=== PATIENT | female | born 1995 | race Caucasian/White ===

== ENCOUNTER → 2019-04-12 07:28 | Outpatient (CLI) | payer BC, OTHER, SELFPAY ==
--- NOTE | 2019-04-12 08:00 | US_ITS ---
US abdomen complete HISTORY: Right upper quadrant pain with nausea and vomiting ITS.REASON: DIARRHEA ORDERING PHYSICIAN: Sussy Skelton APRN PATIENT AGE: 24 years COMPARISON: None FINDINGS: PANCREAS:Unremarkable. No obvious mass or abnormal fluid collection. No ductal dilatation LIVER:No focal liver lesions demonstrated. Homogeneous echogenicity. No intrahepatic biliary ductal dilatation evident. There is appropriate direction of blood flow within a nondilated portal vein RIGHT KIDNEY:Mild renal cortical thinning without obvious scarring. LEFT KIDNEY:Mild renal cortical thinning without obvious scarring. Please correlate with patient's renal function GALLBLADDER:No gallstones, gallbladder wall thickening, pericholecystic fluid, or biliary dilatation. AORTA:No evidence of aneurysmal dilatation. SPLEEN:Unremarkable. Normal size and echogenicity ASCITES:None demonstrated. IMPRESSION: 1. Mild bilateral renal cortical thinning with normal echogenicity without obvious renal scarring. Please correlate with patient's renal function. 2. Otherwise negative abdominal ultrasound
== END ==
PROVIDERS: PCP Obstetrics & Gynecology; Visit Provider Nurse Practitioner Family
DX: R19.7 Diarrhea, unspecified (principal)
CPT/HCPCS: 76700

== ENCOUNTER → 2019-04-26 10:14 | Outpatient (CLI) | payer BC, OTHER, SELFPAY ==
--- NOTE | 2019-04-26 10:16 | NM_ITS ---
PROCEDURE: NM HEPATOBILIARY W PHARM CLINICAL INDICATION: UPPER ABD PAIN Right upper quadrant pain with nausea vomiting and diarrhea COMPARISON: ABDCM US abdomen complete from 04/12/2019 FINDINGS: Dose: 8.04 mCi technetium Choletec 1.4 mcg of CCK. No pain during CCK infusion Gallbladder is visualized by 10 minutes. There is homogeneous echogenicity within the hepatic parenchyma. Small bowel is visualized by 20 minutes. Ejection fraction is calculated to be 96 percent which is normal. IMPRESSION: Unremarkable hepatobiliary scan with normal gallbladder ejection fraction Dictated by: Aneesh Godwin MD 04/26/2019 14:07 Signed by: <Electronically signed by Aneesh Godwin MD in OV> 04/26/2019 14:07
--- NOTE | 2019-04-26 10:29 | HMH.ITSHM ---
Current Home Medications as stated by this patient Charlene Esparza or physician relations representative. []LISINOPRIL
== END ==
PROVIDERS: PCP Obstetrics & Gynecology; Visit Provider Nurse Practitioner Family
DX: R10.10 Upper abdominal pain, unspecified (principal)
CPT/HCPCS: 78227; A9537; J2805

== ENCOUNTER → 2020-04-04 11:47 | Outpatient (CLI) | payer BC, OTHER, SELFPAY ==
[2020-04-04 13:22] LABS: HCG Qualitative, Serum Negative (Negative)
[2020-04-04 15:10] LABS: Coronavirus 19 IgG Antibody Negative (Negative); Coronavirus 19 IgM Antibody Negative (Negative)
== END ==
PROVIDERS: Visit Provider Internal Medicine Gastroenterology
DX: Z01.818 Encounter for other preprocedural examination (principal); R63.4 Abnormal weight loss
CPT/HCPCS: 36415; 84703; 86328

== ENCOUNTER 2020-04-05 10:01 | Day surgery (SDC) | payer BC, MEDICAID, SELFPAY ==
[2020-03-28 13:10] VITALS: BMI 27.5
[2020-04-05] VITALS (7 sets, daily range): BP systolic 80–109; BP diastolic 40–69; PULSE 70–86; RESP 16; TEMP 36.6–36.7; O2SAT 97–100
--- NOTE | 2020-04-05 12:00 | P.PN_ITS ---
[facility] Anesthesia Checklist - Patient Identification Patient Identification: Arm Band - Structural Data Admitted From: Home Planned Operative Procedure/s: egd/colonoscopy Consent for Planned Operative Procedure(s) Verified: Yes Verified Documents: Surgical Consent, History and Physical - NPO Status Verified Time NPO: 00:00 - Additional verifications Anesthesia Reactions: No - Airway Assessment C-Spine Mobility Assessed: Yes (mp2) TMJ Mobility Assessed: Yes Dentition: Poor Dentition - Neurological Assessment Level of Consciousness: Awake, Alert - Anesthesia Plan Anesthesia Risk discussed: Yes Anesthesia Plan: Verified ASA Class: II Anesthesia Type: MAC [facility] History I have reviewed the patient's past medical history: Yes Medical History: Reports:: Hypertension Denies:: Cancer, Diabetes Mellitus Type 1, Diabetes Mellitus Type 2, Internal Pacemaker, MRSA, Seizures *Have you ever received a pneumonia vaccine?: No *Have you received a flu vaccine this season?: Yes Anesthesia experience/problems:: nac Other Surgeries: Yes: Other. No: Pacemaker Amputation: No Fractures: No - *Social History Last grade of school completed: High school graduate Smoking Status: Unknown if ever smoked Tobacco Type: cigarettes # Packs/Day (cigarettes): 1 Alcohol Intake: never Substance Use Type: denies use *Occupational Status:: employed Housing: house Household Members: family *Travel in the last 8 weeks: None Family Hx:: Hypertension, Diabetes, Cancer
--- NOTE | 2020-04-05 12:06 | HMH.PROC ---
[facility] Procedure Note Procedure Note:: Upper Endoscopy Procedure Report: Esophagogastroduodenoscopy with cold biopsies Endoscopost: Florian Sethi II, MD Referring Physician: BREANNE Reddy Date of Procedure: April 05, 2020 Equipment: Olympus GIF 180 standard upper endoscope Sedation: MAC sedation Indications: Ms. Esparza is a 25-year-old female with dyspepsia, epigastric abdominal pain and some lower abdominal pain and discomfort. She has bloating and early satiety. She has lost 36 pounds in 2 weeks. She reports postprandial symptoms. She does have irregular bowel function with diarrhea that alternates with constipation. She reports no gassiness or belching. She has no nausea. She reports no heartburn, reflux, chest pain or dysphagia. She reports no stress. She reports that her maternal grandfather had colon cancer but she reports no family history of colitis or Crohn's disease. This is her first upper endoscopy. Procedure: Prior to the procedure, a history and physical exam was performed, and patient's medications and allergies were reviewed. The risks, benefits and alternatives of the sedation and procedure were discussed with the patient. All questions were answered and informed consent was obtained. The patient was brought to the procedure room. Patient identification and proposed procedure were verified by the physician and the nurse. The patient was placed in a left lateral decubitus position and the scope was passed under direct vision. Throughout the procedure, the patient's blood pressure, pulse, and oxygen saturations were monitored continuously. The upper GI endoscopy was accomplished without difficulty. The patient tolerated the procedure well. Findings: The scope was passed directly into the upper esophagus and advanced to the third portion of the duodenum. The post bulbar duodenum and duodenal bulb were normal with normal mucosa and conniventes. Cold biopsies were taken from the post bulbar duodenum to rule out celiac disease. The scope was withdrawn through a normal duodenal bulb and pylorus into the stomach. There was mild linear reactive gastropathy of the antrum. The remainder of the antrum, body and fundus of the stomach were grossly normal. Upon retroflexion there was a small 1 to 2 cm hiatal hernia. 2 biopsies were taken in the antrum and along the lesser curvature for histology to rule out gastritis and/or H pylori. The scope was then withdrawn into the esophagus. There was no evidence of reflux esophagitis or Harman's. There were tertiary contractions and mild esophageal dysmotility. The remainder of the esophageal mucosa was normal. Impression: 1. Nonerosive GERD with mild esophageal dysmotility and very small 1 to 2 cm hiatal hernia 2. Mild linear reactive gastropathy Plan: I will follow-up the biopsies. I do feel that the patient has functional dyspepsia and functional bowel disease. We will discuss dietary measures and treatment to include therapy for visceral sensitivity/abdominal pain. I will proceed with colonoscopy.
--- NOTE | 2020-04-05 12:23 | HMH.PROC ---
[facility] Procedure Note Procedure Note:: Colonoscopy Procedure Report: Colonoscopy with cold biopsies Endoscopist: Florian Sethi II, MD Referring physician: BREANNE Reddy Date of Procedure: April 05, 2020 Equipment: Olympus 180 variable stiffness pediatric colonoscope Sedation: MAC sedation Indication: Ms. Esparza is a 25-year-old female with dyspepsia and abdominal pain. She does report some lower abdominal pain and discomfort. She has irregular bowel function with both diarrhea that alternates with constipation. The diarrhea is predominant. The patient does report a 36 pound weight loss in 2 weeks. The patient reports no rectal bleeding. She reports no family history of colitis or Crohn's disease but her maternal grandfather had colon cancer. This is her first colonoscopy. Procedure: Prior to the procedure, a history and physical exam was performed, and patient's medications and allergies were reviewed. The risks, benefits and alternatives of the sedation and procedure were discussed with the patient. All questions were answered and informed consent was obtained. The patient was brought to the procedure room. Patient identification and proposed procedure were verified by the physician and the nurse. The patient was placed in a left lateral decubitus position and the scope was passed under direct vision. Throughout the procedure, the patient's blood pressure, pulse, and oxygen saturations were monitored continuously. The colonoscopy was accomplished without difficulty. The patient tolerated the procedure well. Findings: On digital rectal examination there was normal rectal tone. There were no external hemorrhoids. The colonoscope was introduced through the anal canal to the rectum and advanced to the cecum. The ileocecal valve and appendiceal orifice were identified. The scope was advanced a short distance into the ileum which appeared grossly normal. Cold biopsies were taken from the ileum to rule out microscopic ileitis. The scope was then withdrawn into the colon. The cecum, ascending, transverse, descending, sigmoid and rectum were grossly normal. Cold biopsies were taken from the right colon to rule out microscopic colitis. There were no mucosal abnormalities identified. Upon retroflexion within the rectum there were grade 1 internal hemorrhoids.The preparation was excellent throughout with [place] Preparation Score of 9. The cecal time was 10 minutes. Impression: 1. Normal colonoscopy with intubation of the terminal ileum 2. Grade 1 internal hemorrhoids Plan: There was no evidence of colitis or Crohn's disease. I do feel that the patient has irritable bowel syndrome. We will discuss dietary measures and treatment options. I will follow-up the biopsies.
== END 2020-04-05 13:21 | disposition home or self-care (01) ==
PROVIDERS: PCP Nurse Practitioner Family; Visit Provider Internal Medicine Gastroenterology
PROC: 0DJ08ZZ Inspection of Upper Intestinal Tract, Via Natural or Artificial Opening Endoscopic (ICD-10-PCS; CPT 43235; principal; 2020-04-05 11:00)
DX: K59.09 Other constipation (principal); K64.0 First degree hemorrhoids; K44.9 Diaphragmatic hernia without obstruction or gangrene; K21.9 Gastro-esophageal reflux disease without esophagitis; K22.4 Dyskinesia of esophagus; K31.9 Disease of stomach and duodenum, unspecified; R19.7 Diarrhea, unspecified; I10 Essential (primary) hypertension; Z80.9 Family history of malignant neoplasm, unspecified; Z83.3 Family history of diabetes mellitus; Z82.49 Family history of ischemic heart disease and other diseases of the circulatory system; Z79.899 Other long term (current) drug therapy
CPT/HCPCS: 45378; 43239

== ENCOUNTER → 2021-11-18 15:38 | Outpatient (CLI) | payer BC, MEDICAID, SELFPAY ==
[2021-11-18 18:14] LABS: Thyroid Stimulating Hormone 2.03 uIU/mL (0.465-4.68)
[2021-11-20 08:16] LABS: Estradiol 35.1 pg/mL (.); FSH 5.9 mIU/mL (.); LH 2.9 mIU/mL (.); Progesterone 0.5 ng/mL (.)
== END ==
PROVIDERS: Visit Provider Obstetrics & Gynecology
DX: R10.2 Pelvic and perineal pain (principal)
CPT/HCPCS: 36415; 82670; 83001; 83002; 84144; 84443

== ENCOUNTER → 2021-12-02 14:48 | Outpatient (CLI) | payer BC, MEDICAID, SELFPAY ==
--- NOTE | 2021-12-02 14:54 | US_ITS ---
FINAL REPORT CLINICAL HISTORY: pelvic pain FINDINGS: Transvaginal sonographic images of the pelvis were obtained. The uterus measures 8.4 x 5.1 x 3.5 cm. The endometrium measures 7 mm, which is within normal limits. No uterine mass is identified. The right ovary measures 3.5 cm in length and left ovary measures 3.3 cm in length. Normal blood flow seen to the ovaries. There is a 1.7 x 1.5 right ovarian cyst which is probably physiologic. There is no evidence of free fluid. IMPRESSION: Right ovarian cyst as described. Reviewed, Interpreted and Dictated by Shailesh Buaer MD Transcribed by Zoila Easton Authenticated by Shailesh Bauer MD on 12/02/2021 04:44:40 PM [facility]
== END ==
PROVIDERS: PCP Nurse Practitioner Family; Visit Provider Obstetrics & Gynecology
DX: R10.2 Pelvic and perineal pain (principal)
CPT/HCPCS: 76830

== ENCOUNTER → 2023-01-04 16:21 | Outpatient (CLI) | payer BC, MEDICAID, SELFPAY ==
--- NOTE | 2023-01-04 16:24 | US_ITS ---
FINAL REPORT CLINICAL HISTORY: Lower Left quadrant pain FINDINGS: Transvaginal sonographic images of the pelvis were obtained. The uterus measures 9 x 4 x 6 cm. The endometrium measures 4 mm, which is within normal limits. No uterine mass is identified. The right ovary measures 3.1 cm in length and left ovary measures 1.9 cm in length. Normal blood flow is seen to the ovaries. There is no evidence of free fluid. IMPRESSION: No acute abnormality identified. Reviewed, Interpreted and Dictated by Lawrence Ivey III, MD Transcribed by Karen Rushing Authenticated and [facility]
== END ==
PROVIDERS: PCP Nurse Practitioner Family; Visit Provider Obstetrics & Gynecology
DX: R10.32 Left lower quadrant pain (principal)
CPT/HCPCS: 76830

== ENCOUNTER → 2023-02-04 14:32 | Outpatient (CLI) | payer BC, MEDICAID, SELFPAY ==
[2023-02-04 15:36] LABS: Basophils % 0.4 % (0.1-2.0); Eosinophils # 0.2 K/mm3 (0.0-0.4); Hematocrit 43.4 % (37.0-47.0); Hemoglobin 14.6 g/dL (12.2-16.2); Lymphocytes # 2.6 K/mm3 (0.7-4.5); Mean Corpuscular HGB Conc 33.6 g/dL (31.8-35.4); Mean Corpuscular Hemoglobin 29.8 pg (27.0-31.2); Mean Corpuscular Volume 88.7 fl (81-99); Mean Platelet Volume 7.5 fl (7.4-10.4); Monocytes # 0.4 K/mm3 (0.1-1.0); Monocytes % 4.7 % (1.7-9.3); Neutrophils # 5.7 K/mm3 (1.8-7.8); Neutrophils % 63.9 % (37.0-80.0); Platelet Count 350 K/mm3 (142-424); Red Blood Count 4.89 M/mm3 (4.20-5.40); Red Cell Distribution Width 13.2 % (11.5-17.5)
[2023-02-04 16:03] LABS: Chloride 95 mmol/L (98-107); Potassium 4.2 mmoL/L (3.5-5.1); Sodium 138 mmol/L (136-145)
[2023-02-04 16:05] LABS: Blood Urea Nitrogen 8 mg/dl (7-17); Estimated Glomerular Filt Rate 75 ml/min (>60); GFR (African American) 91 ML/MIN (>60)
[2023-02-04 16:06] LABS: Alanine Aminotransferase 38 U/L (12-78); Albumin Level 4.4 g/dl (3.5-5.0); Albumin/Globulin Ratio 1.5 (1.1-1.8); Alkaline Phosphatase 51 U/L (38-126); Anion Gap 16.2 mEq/L (5-15); Aspartate Amino Transferase 36 U/L (14-36); Bilirubin,Total 0.2 mg/dl (0.2-1.3); Calcium 9.8 mg/dl (8.4-10.2); Carbon Dioxide 31 mmol/L (22.0-30.0); Globulin 2.9 g/dL (1.3-3.2); Glucose 80 mg/dl (74-100); Total Protein,Serum 7.3 g/dl (6.3-8.2)
[2023-02-04 16:34] LABS: HCG,Quantitative < 2 mIU/ml (0-5.42)
== END ==
PROVIDERS: PCP Nurse Practitioner Family; Visit Provider Obstetrics & Gynecology
DX: R10.2 Pelvic and perineal pain (principal)
CPT/HCPCS: 36415; 80053; 84702; 85025

== ENCOUNTER 2023-02-11 06:01 | Day surgery (SDC) | payer BC, MEDICAID, SELFPAY ==
[2023-02-09 12:52] VITALS: BMI 33.2
[2023-02-11] VITALS (11 sets, daily range): BP systolic 124–142; BP diastolic 72–89; PULSE 76–95; RESP 15–18; TEMP 36.1–43; O2SAT 95–100
--- NOTE | 2023-02-11 06:53 | P.PN_ITS ---
[facility] Disclaimer: The information contained in this section may have been updated after the patient was seen, as this information can be updated by other users. Medical History No significant past medical history Surgical History No significant past surgical history Family History Other Asthma Diabetes Hyperlipidemia Hypertension Social History Smoking Status: Never smoker second hand exposure: Yes alcohol intake: never substance use type: denies use current occupational status: employed Travel in the last 8 weeks: None household members: family housing: house current occupation: [employer] current occupational exposures/hazards: No caffeine: Yes do you feel safe at home: Yes victim of physical abuse: No victim of emotional abuse: No victim of sexual abuse: No would you like helpful sources: No [facility] Anesthesia Checklist Patient Identification Patient Identification: Arm Band and Verbal (Name & ) Structural Data Admitted From: Home Planned Operative Procedure/s: Dx lap Consent for Planned Operative Procedure(s) Verified: Yes NPO Status Verified Time NPO: 00:00 Chart Verification Results Verified: CBC and BMP Additional verifications Anesthesia Reactions: No Hx Blood Transfusions: No Blood Transfusion Reaction: No Airway Assessment C-Spine Mobility Assessed: Yes TMJ Mobility Assessed: Yes Dentition: Dentures-poor fitting Neurological Assessment Level of Consciousness: Awake Hx Seizures: No Numbness or tingling in extremities: No Anesthesia Plan Anesthesia Risk discussed: Yes Anesthesia Plan: Verified ASA Class: I Anesthesia Type: General
[2023-02-11 07:01] LABS: HCG Qualitative, Serum Negative (Negative)
--- NOTE | 2023-02-11 09:09 | EXP.ANES.I ---
[facility] Anesthesia Record Part I Anesthesia Record I Intake, IV Amount: 800 Estimated blood loss (mL): 5 Urine output (mL): 0 Blood Pressure: 139/89 SaO2: 96 Pulse Rate: 83 Respiratory Rate: 16 Temperature: 97.1 F Patient is:: Drowsy and Oral/Nasal airway Stable to PACU at:: 09:10
--- NOTE | 2023-02-11 10:49 | EXP.OP.NOTE ---
Date of procedure: 02/11/23 Pre-op Diagnosis:: Chronic pelvic pain Post-op Diagnosis:: same + endometriosis Procedure performed:: Diagnostic laparoscopy Fulgaration of endometriosis Surgeon:: Cathryn Mane MD DAY CARE DIRECTOR:: Andrew Jade Anesthesia: GETA Estimated blood loss (mL): 5 Operative findings:: powder burn and vesicular lesions within cul-de-sac grossly normal appearing uterus, fallopian tubes and ovaries Operative note:: The patient was taken to the operating room and general anesthesia was administered. She was prepped/draped in lithotomy position. A uterine manipulator was placed without difficulty. Gloves were changed and attention was turned to the abdomen. A 5mm skin incision was made in the umbilical fold and the verees needle was inserted through the peritoneum and into the abdominal cavity in standard fashion. The abdomen was insufflated with CO2 gas. A 5mm non-bladed trocar was inserted directly into the abdominal cavity and appropriate placement was confirmed with the laparoscope. No intra-abdominal injuries occurred during entry into the abdominal cavity, as confirmed visually with the laparoscope. The patient was placed in trendelenburg and a 5mm skin incision was made 2cm above the pubic symphysis. A 5mm non-bladed trocar was inserted under direct visualization, without complication. The uterus was elevated out of the pelvis in order to better visualize the anatomy. A survey of the pelvis and abdomen revealed the findings noted above. The uterus, fallopian tubes and ovaries appeared normal. There were no cysts on either ovary. There were no adhesions present. The only visible endometriosis was center cul-de-sac. A ring forcep was placed in the vagina inferior to the cervix to confirm this location laparoscopically, and the lesions were located directly beyond the vaginal tissue inferior to the cervix. The harmonic scalpel was used to fulgarate the lesions, with careful attention to avoid deep penetratin into the vaginal tissue. The abdomen was then evacuated of gas and all trocars removed. The skin incisions were closed with 4-0 monocryl and dermabond. The uterine manipulator was removed. All sponge/lap/needle/instrument counts correct. Total EBL: 5cc. The patient was taken out of lithotomy position, extubated and taken to the PACU in stable condition. Condition: stable Disposition: PACU Specimens:: none Complications:: none
--- NOTE | 2023-02-12 10:07 | P.PNANES_ITS ---
[facility] Anesthesia Record Part II Anesthesia Record Part II Discharge Time: 09:40 Destination: Surgical Day Care (OP Surgery) PACU nurse assessment reviewed?: Yes Patient Condition:: Good Anesthesia Complications:: None Swallowing reflex intact?: Yes Cyanosis?: No Blood Pressure: 127/81 Pulse Rate: 79 Temperature: 97 F Mental Status: Alert & Oriented Pain level:: 0 Nausea and/or vomitting:: None Intake, IV Amount: 0
[2023-02-12 12:15] VITALS: BP 127/81; PULSE 79; TEMP 36.1
== END 2023-02-11 10:30 | disposition home or self-care (01) ==
PROVIDERS: PCP Nurse Practitioner Family; Visit Provider Obstetrics & Gynecology
PROC: (CPT 49320; principal; 2023-02-11 07:30)
DX: N80.9 Endometriosis, unspecified (principal); R10.2 Pelvic and perineal pain; G89.29 Other chronic pain
CPT/HCPCS: 58662; 84703; 96374; J2405

== ENCOUNTER → 2023-04-12 15:30 | Outpatient (CLI) | payer BC, MEDICAID, SELFPAY ==
[2023-04-12 16:09] LABS: Basophils % 0.4 % (0.1-2.0); Eosinophils # 0.1 K/mm3 (0.0-0.4); Eosinophils % 0.9 % (0.1-12.0); Hematocrit 42.6 % (37.0-47.0); Hemoglobin 14.3 g/dL (12.2-16.2); Lymphocytes # 2.4 K/mm3 (0.7-4.5); Lymphocytes % 21.9 % (10-50); Mean Corpuscular HGB Conc 33.6 g/dL (31.8-35.4); Mean Corpuscular Hemoglobin 29.4 pg (27.0-31.2); Mean Corpuscular Volume 87.7 fl (81-99); Mean Platelet Volume 7.3 fl (7.4-10.4); Monocytes # 0.5 K/mm3 (0.1-1.0); Monocytes % 4.3 % (1.7-9.3); Neutrophils # 7.9 K/mm3 (1.8-7.8); Neutrophils % 72.6 % (37.0-80.0); Platelet Count 328 K/mm3 (142-424); Red Blood Count 4.85 M/mm3 (4.20-5.40); Red Cell Distribution Width 13.1 % (11.5-17.5); White Blood Count 10.9 K/mm3 (4.8-10.8)
[2023-04-12 16:32] LABS: Alanine Aminotransferase 30 U/L (12-78); Albumin Level 4.7 g/dl (3.5-5.0); Albumin/Globulin Ratio 1.6 (1.1-1.8); Alkaline Phosphatase 68 U/L (38-126); Anion Gap 13.4 mEq/L (5-15); Aspartate Amino Transferase 29 U/L (14-36); Bilirubin,Total 0.3 mg/dl (0.2-1.3); Blood Urea Nitrogen 6 mg/dl (7-17); Carbon Dioxide 28 mmol/L (22.0-30.0); Chloride 105 mmol/L (98-107); Estimated Glomerular Filt Rate 85 ml/min (>60); GFR (African American) 103 ML/MIN (>60); Glucose 89 mg/dl (74-100); Potassium 4.4 mmoL/L (3.5-5.1); Sodium 142 mmol/L (136-145); Total Protein,Serum 7.7 g/dl (6.3-8.2)
[2023-04-12 16:55] LABS: HCG,Quantitative < 2 mIU/ml (0-5.42)
== END ==
PROVIDERS: PCP Nurse Practitioner Family; Visit Provider Obstetrics & Gynecology
DX: Z01.812 Encounter for preprocedural laboratory examination (principal); N80.9 Endometriosis, unspecified
CPT/HCPCS: 36415; 80053; 84702; 85025

== ENCOUNTER 2023-04-15 12:16 | Observation (INO) | payer BC, MEDICAID, SELFPAY ==
[2023-04-12 10:09] VITALS: BMI 31.8
[2023-04-15] VITALS (24 sets, daily range): BP systolic 100–138; BP diastolic 52–87; PULSE 62–89; RESP 15–18; TEMP 36.3–43; O2SAT 97–100
--- NOTE | 2023-04-15 06:50 | EXP.HP ---
History of Present Illness *Admission Date: 04/15/23 *Reason for visit:: Chronic pelvic pain, dyspareunia *History of present illness: Ms Charlene Espazra is a 28 yo P1001 who presents to [facility] for scheduled surgery. She complains of chronic pelvic pain and history of endometriosis determined by laparoscopy, 02/11/23. She states she has missed work secondary to pelvic pain. She is complete with childbearing and desires definitive surgical intervention with hysterectomy. History of x 1. Surgical history significant for laparoscopy, fulguration of endometriosis. Pelvic ultrasound 12/2022 was within normal limits. She denies past medical history. She would like to keep her ovaries. She does not want to be on medication. [facility] Disclaimer: The information contained in this section may have been updated after the patient was seen, as this information can be updated by other users. Medical History Chronic pelvic pain in female Endometriosis determined by laparoscopy Surgical History Hx of laparoscopy Family History Other Asthma Diabetes Hyperlipidemia Hypertension Social History Smoking Status: Former smoker years smoked: 2 smoking status stop date: 2019 second hand exposure: Yes alcohol intake: never substance use type: denies use current occupational status: employed Travel in the last 8 weeks: None household members: family housing: house current occupation: [employer] current occupational exposures/hazards: No caffeine: Yes do you feel safe at home: Yes victim of physical abuse: No victim of emotional abuse: No victim of sexual abuse: No would you like helpful sources: No Review of Systems Review of Systems Review of systems:: pertinent systems reviewed and negative unless documented below *Gastrointestinal Gastrointestinal: Reports abdominal pain *Genitourinary Genitourinary: Reports dyspareunia and Reports pelvic pain Meds Home Medications and Allergies Home Medications Medication Instructions Recorded Confirmed Type No Known Home Medications 02/25/23 04/15/23 History New Prescriptions to Start Prescriptions: Allergies Allergy/AdvReac Type Severity Reaction Status Date / Time No Known Drug Allergies Allergy Unknown -- Verified 04/15/23 06:24 Exam Data for Last 24 hours Vital signs and Labs for Last 24 Hours: Temp Pulse Resp BP Pulse Ox O2 Del Method 98.6 F 71 18 117/66 100 Room Air 04/15/23 06:25 04/15/23 06:25 04/15/23 06:25 04/15/23 06:25 04/15/23 06:25 04/15/23 06:25 I & O for Last 24 hours: Intake & Output 04/12/23 04/13/23 04/14/23 04/15/23 23:59 23:59 23:59 23:59 Weight 163 lb Constitutional Constitutional: no acute distress *Routine HEENT Exam Head: Present normocephalic and atraumatic Eye: Absent conjunctivae pink ENT: Present mucous membranes moist and dentition normal *Routine Neck Exam Neck: Present full ROM *Routine Respiratory Exam Respiratory: Present CTA bilaterally and normal respiratory effort *Routine Cardiovascular Exam Cardiovascular: Present RRR *Routine Abdominal Exam Abdominal: Present soft and normoactive bowel sounds; Absent tenderness *Routine Rectal Exam Rectal:: deferred *Routine Genitalia Exam Genitalia:: deferred *Routine Extremities Exam Extremities: Present full ROM; Absent edema or calf tenderness *Routine Neurological Exam Neurological: Present alert, oriented X3 and moving all extremities Routine Psychiatric Exam Psychiatric: Present normal affect and cooperative Assessment and Plan *Assessment and plan (1) Chronic pelvic pain in female: Status: Acute Category: Medical Code(s): R10.2 - Pelvic and perineal pain; G89.29 - Other chronic pain
--- NOTE | 2023-04-15 08:26 | EXP.ANES.CKL ---
[facility] Disclaimer: The information contained in this section may have been updated after the patient was seen, as this information can be updated by other users. Medical History Chronic pelvic pain in female Endometriosis determined by laparoscopy Surgical History Hx of laparoscopy Family History Other Asthma Diabetes Hyperlipidemia Hypertension Social History Smoking Status: Former smoker years smoked: 2 smoking status stop date: 2019 second hand exposure: Yes alcohol intake: never substance use type: denies use current occupational status: employed Travel in the last 8 weeks: None household members: family housing: house current occupation: [employer] current occupational exposures/hazards: No caffeine: Yes do you feel safe at home: Yes victim of physical abuse: No victim of emotional abuse: No victim of sexual abuse: No would you like helpful sources: No [facility] Anesthesia Checklist Patient Identification Patient Identification: Arm Band Structural Data Admitted From: Home Planned Operative Procedure/s: Laparoscopic Hysterectomy Consent for Planned Operative Procedure(s) Verified: Yes Verified Documents: Surgical Consent and History and Physical NPO Status Verified Time NPO: 00:00 Additional verifications Anesthesia Reactions: No Hx Blood Transfusions: No Blood Transfusion Reaction: No Airway Assessment Mallampati Score:: Class II C-Spine Mobility Assessed: Yes TMJ Mobility Assessed: Yes Dentition: Good Dentition Neurological Assessment Level of Consciousness: Awake and Alert Anesthesia Plan Anesthesia Risk discussed: Yes Anesthesia Plan: Verified ASA Class: I Anesthesia Type: General
--- NOTE | 2023-04-15 11:23 | P.PNANES_ITS ---
[facility] Anesthesia Record Part I Anesthesia Record I Intake, IV Amount: 1,200 Estimated blood loss (mL): 100 Urine output (mL): 50 Blood Products used (#): none Blood Pressure: 131/72 SaO2: 100 Pulse Rate: 89 Respiratory Rate: 16 Temperature: 97.3 F Patient is:: Drowsy and Stable Stable to PACU at:: 11:20
--- NOTE | 2023-04-15 11:48 | EXP.OP.NOTE ---
Date of procedure: 04/15/23 Pre-op Diagnosis:: 1. Chronic pelvic pain 2. Endometriosis 3. Dyspareunia Post-op Diagnosis:: 1. Chronic pelvic pain 2. Endometriosis of pelvic peritoneum 3. Dyspareunia Procedure performed:: Total laparoscopic hysterectomy, bilateral salpingectomy Surgeon:: Ashley Posey DO Fisher Diving(s):: Fredy Mosqueda MD CAFETERIA CLERK:: Tomasz Matthews Anesthesia: GETA Estimated blood loss (mL): 100 Clinical Note:: Ms Charlene Esparza is a 28 yo P1001 who presents to [facility] for scheduled surgery. She complains of chronic pelvic pain and history of endometriosis determined by laparoscopy, 02/11/23. She states she has missed work secondary to pelvic pain. She is complete with childbearing and desires definitive surgical intervention with hysterectomy. History of x 1. Surgical history significant for laparoscopy, fulguration of endometriosis. Pelvic ultrasound 12/2022 was within normal limits. She denies past medical history. She would like to keep her ovaries. She does not want to be on medication. Operative findings:: 1. On bimanual exam, uterus normal size and shape, midline and anteverted. No adnexal masses palpated 2. On laprascopic exam, normal appearing liver, stomach, bowel and appendix. Uterus, bilateral fallopian tubes and bilateral ovaries grossly normal. 3. Endometrial powder burn lesions noted on peritoneum in posterior cul-de-sac Operative note:: Discussed risks, benefits, alternatives, expectations and possible complications of surgery. All questions addressed and answered. Patient wished to proceed with surgery. Patient was wheeled back to the operating room and placed under general anesthesia without difficulty. She was placed in the dorsal lithotomy position. She was prepped and draped in normal sterile fashion. Beginning at the vagina, a oliva catheter was inserted into the bladder and draining clear urine prior to the start of the procedure. Weighted Auvuard was placed in the vaginal vault. Anterior lip of the cervix was grasped with single tooth tenaculum. Uterus sounded to 9. Rylan dilators were used to dilate the cervix. Advincula uterine manipulator was inserted into the cervix with the colpotomy cup covering the cervix. Single tooth tenaculum was removed prior to complete placement of colpotomy cup over cervix. Uterine balloon was filled with 10cc of air. Vaginal balloon was filled with 60 cc of air. Weighted Auvard was removed. Attention was then turned to the abdomen. Skin just below the umbilicus was injected with 0.5% marcaine. A 1.5 cm infraumbilical incision was made. Veress needle was tested and inserted intrabdominally. Opening pressure was 7 mm Hg. The peritoneal cavity was insulflated to 15 mm Hg. Laparoscope within 11 mm blunt trocar was inserted intrabdominally under direct visualization. Obturator and scope were removed. Laparoscope was inserted into the trocar sleeve. Abdomen and pelvis was viewed in its entirety. Examination of the peritoneal cavity revealed no signs of injury from entry and normal anatomic structures. See findings above. Pictures were taken. Bowel was swept cephalad with blunt probe. LLQ port site was transilluminated and injected with 0.5% marcaine. A 1.5 cm incision was made and 11 mm trocar was inserted intraabdominally under direct laparoscopic visualization. Obturator was removed and sleeve was left in place. Same procedure was performed in RLQ. Left fallopian tube was grasped at fimbriated end. Ligasure Hook was used to transect the left mesosalpinx, mesovarium and ovarian ligament. Left fallopian tube was transected at cornua of uterus and removed from the body and off of the sterile field to be sent to pathology for review. Transection was carried through the Broad ligament. Same procedure was carried out on the contralateral side including transecting the right fallopian tube and removing it from the body and off of the sterile field. Both ovaries left in situ. Care was taken to slowly separ
--- NOTE | 2023-04-15 11:50 | SUR.PHASEI ---
1140-report given to Agata Roberson RN at this time
--- NOTE | 2023-04-15 12:51 | EXP.ANES.II ---
[facility] Anesthesia Record Part II Anesthesia Record Part II Discharge Time: 11:50 Destination: Obstetric PACU nurse assessment reviewed?: Yes Patient Condition:: Good Anesthesia Complications:: None Swallowing reflex intact?: Yes Cyanosis?: No Blood Pressure: 125/76 Pulse Rate: 74 Temperature: 97.3 F Mental Status: Alert & Oriented Pain level:: 0 Nausea and/or vomitting:: None Intake, IV Amount: 0
[2023-04-16 05:36] VITALS: BP 103/54; PULSE 67; RESP 16; TEMP 37.1
[2023-04-16 06:41] LABS: Basophils % 0.1 % (0.1-2.0); Eosinophils # 0.1 K/mm3 (0.0-0.4); Eosinophils % 0.7 % (0.1-12.0); Hematocrit 36.1 % (37.0-47.0); Hemoglobin 11.9 g/dL (12.2-16.2); Lymphocytes % 14.4 % (10-50); Mean Corpuscular Volume 87.8 fl (81-99); Mean Platelet Volume 7.6 fl (7.4-10.4); Monocytes # 0.6 K/mm3 (0.1-1.0); Monocytes % 4.6 % (1.7-9.3); Neutrophils % 80.1 % (37.0-80.0); Platelet Count 336 K/mm3 (142-424); Red Blood Count 4.11 M/mm3 (4.20-5.40); Red Cell Distribution Width 13.3 % (11.5-17.5); White Blood Count 13.7 K/mm3 (4.8-10.8)
[2023-04-16 06:50] LABS: Chloride 107 mmol/L (98-107); Potassium 3.9 mmoL/L (3.5-5.1); Sodium 140 mmol/L (136-145)
[2023-04-16 06:52] LABS: Blood Urea Nitrogen 6 mg/dl (7-17); Creatinine Clearance Estimated 140 mL/min (50-200); Estimated Glomerular Filt Rate 100 ml/min (>60); GFR (African American) 121 ML/MIN (>60)
[2023-04-16 06:53] LABS: Alanine Aminotransferase 22 U/L (12-78); Albumin Level 3.5 g/dl (3.5-5.0); Albumin/Globulin Ratio 1.3 (1.1-1.8); Alkaline Phosphatase 58 U/L (38-126); Anion Gap 9.9 mEq/L (5-15); Aspartate Amino Transferase 23 U/L (14-36); Bilirubin,Total 0.4 mg/dl (0.2-1.3); Calcium 9.4 mg/dl (8.4-10.2); Carbon Dioxide 27 mmol/L (22.0-30.0); Globulin 2.8 g/dL (1.3-3.2); Glucose 107 mg/dl (74-100); Total Protein,Serum 6.3 g/dl (6.3-8.2)
[2023-04-16 08:00] VITALS: BP 103/64; PULSE 76; RESP 16; TEMP 37.1; O2SAT 100
--- NOTE | 2023-04-16 08:46 | EXP.DC.SUM ---
General Admission date:: 04/15/23 Discharge date: 04/16/23 HPI HPI HPI: POD # 1 s/p CB BS She is resting comfortably in bed. Pain controlled. Denies bleeding. Tolerating regular diet. Voiding without difficulty and passing flatus. Denies fever/chills, chest pain and shortness of breath. No dizziness or lightheadedness. Ambulating well ad perez. Hospital Course Hospital Course Hospital Course: Ms Charlene Esparza is a 28 yo P1001 who presented to [facility] for scheduled surgery. She complains of chronic pelvic pain and history of endometriosis determined by laparoscopy, 02/11/23. She states she has missed work secondary to pelvic pain. She is complete with childbearing and desires definitive surgical intervention with hysterectomy. History of x 1. Surgical history significant for laparoscopy, fulguration of endometriosis. Pelvic ultrasound 12/2022 was within normal limits. She denies past medical history. She would like to keep her ovaries. She does not want to be on medication. She had a CB BS on 04/15/23. EBL 100 mL. She did well postoperatively. Pain controlled. Voiding without difficulty and passing flatus. Tolerating regular diet. Ambulating well ad perez. Vital signs stable, afebrile. Heart regular rate and rhythm. Lungs clear to auscultation. Abdomen soft, nontender. No lower extremity edema. Normal hospital course. She was discharged home on POD # 1. Exam Data for Last 24 hours Vital signs and Labs for Last 24 Hours: Temp Pulse Resp BP Pulse Ox O2 Del Method 98.7 F 76 16 103/64 L 100 Room Air 04/16/23 08:00 04/16/23 08:00 04/16/23 08:00 04/16/23 08:00 04/16/23 08:00 04/16/23 08:00 Laboratory Results - last 24 hr 04/16/23 06:32: WBC 13.7 H, RBC 4.11 L, Hgb 11.9 L, Hct 36.1 L, MCV 87.8, MCH 29.0, MCHC 33.0, RDW 13.3, Plt Count 336, MPV 7.6, Neut % (Auto) 80.1 H, Lymph % (Auto) 14.4, Miner % (Auto) 4.6, Eos % (Auto) 0.7, Baso % (Auto) 0.1, Neut # (Auto) 11.0 H, Lymph # (Auto) 2.0, Miner # (Auto) 0.6, Eos # (Auto) 0.1, Baso # (Auto) 0.0, Sodium 140, Potassium 3.9, Chloride 107, Carbon Dioxide 27, Anion Gap 9.9, BUN 6 L, Creatinine 0.70, Estimated Creat Clear 140, Estimated GFR 100, Est GFR ( Amer) 121, Glucose 107 H, Calcium 9.4, Total Bilirubin 0.4, AST 23, ALT 22, Alkaline Phosphatase 58, Total Protein 6.3, Albumin 3.5, Globulin 2.8, Albumin/Globulin Ratio 1.3 I & O for Last 24 hours: Intake & Output 04/13/23 04/14/23 04/15/23 04/16/23 23:59 23:59 23:59 23:59 Intake Total 1200 / 1200 Output Total 1450 / 1450 0 / 0 Balance -250 / -250 0 / 0 Results Data Completed and Pending Labs on day of discharge: Labs from last 24 hours 04/16/23 06:32 WBC 13.7 H RBC 4.11 L Hgb 11.9 L Hct 36.1 L MCV 87.8 MCH 29.0 MCHC 33.0 RDW 13.3 Plt Count 336 MPV 7.6 Neut % (Auto) 80.1 H Lymph % (Auto) 14.4 Miner % (Auto) 4.6 Eos % (Auto) 0.7 Baso % (Auto) 0.1 Neut # (Auto) 11.0 H Lymph # (Auto) 2.0 Miner # (Auto) 0.6 Eos # (Auto) 0.1 Baso # (Auto) 0.0 Sodium 140 Potassium 3.9 Chloride 107 Carbon Dioxide 27 Anion Gap 9.9 BUN 6 L Creatinine 0.70 Estimated Creat Clear 140 Estimated GFR 100 Est GFR ( Amer) 121 Glucose 107 H Calcium 9.4 Total Bilirubin 0.4 AST 23 ALT 22 Alkaline Phosphatase 58 Total Protein 6.3 Albumin 3.5 Globulin 2.8 Albumin/Globulin Ratio 1.3 DS: Diagnosis Discharge Diagnosis (1) Status post laparoscopic hysterectomy: Status: Acute Code(s): Z90.710 - Acquired absence of both cervix and uterus Problem details: total laparoscopic hysterectomy, bilateral salpingectomy 04/15/23 (2) Chronic pelvic pain in female: Status: Acute Code(s): R10.2 - Pelvic and perineal pain; G89.29 - Other chronic pain (3) Endometriosis determined by laparoscopy: Status: Acute Code(s): N80.9 - Endometriosis, unspecified (4) Dyspareunia: Status: Acute Meds Home Medications and
== END 2023-04-16 10:52 | disposition home or self-care (01) ==
LOC: OB 12:16
PROVIDERS: Admitting Provider Obstetrics & Gynecology; PCP Nurse Practitioner Family; Visit Provider Obstetrics & Gynecology
PROC: (CPT 58571; principal; 2023-04-15 07:30)
DX: R10.2 Pelvic and perineal pain (principal); G89.29 Other chronic pain; N80.9 Endometriosis, unspecified
CPT/HCPCS: 58571; 36415; 80053; 85025; 94761; 96374; G0283; G0378; J2405

== ENCOUNTER 2024-03-12 09:28 | Emergency (ER) | payer BC, MEDICAID, SELFPAY ==
[2024-03-12 09:40] VITALS: BP 129/87; PULSE 90; RESP 18; TEMP 37.3; O2SAT 100; BMI 30.7
--- NOTE | 2024-03-12 09:44 | XR_ITS ---
PROCEDURE INFORMATION: Exam: XR Chest Exam date and time: 03/12/2024 9:39 AM Age: 28 years old Clinical indication: Cough and shortness of breath and other: Chest pain; On breathing; Additional info: Cough, chest congestion TECHNIQUE: Imaging protocol: Radiologic exam of the chest. Views: 2 views. COMPARISON: No relevant prior studies available. FINDINGS: Lungs: Opacity in the medial right base may represent atelectasis or pneumonia. Pleural spaces: Unremarkable. No pleural effusion. No pneumothorax. Heart/Mediastinum: Unremarkable. No cardiomegaly. Bones/joints: Unremarkable. IMPRESSION: Opacity in the medial right base may represent atelectasis or pneumonia.
--- NOTE | 2024-03-12 09:46 | ED_ITS ---
Discharge Plan Disposition Patient Disposition: Home, Self-Care Condition: Good Prescriptions Prescriptions: New amoxicillin 875 mg tablet 875 mg PO Q12H Qty: 20 0RF methylprednisolone 4 mg Tablets,Dose Pack 4 mg PO DIRECTED 6 Days Qty: 21 0RF Rx Instructions: Take 1 pack as directed for 6 days [id number]-[id number] [Bromfed DM] 2-30-10 mg/5 mL Syrup 5 ml PO Q6H PRN (Reason: Cough) Qty: 240 0RF Referrals Follow up/Referrals: Rosa Louis [Primary Care Provider] - See instructions Activity Restrictions/Add. Instructions Additional Instructions/Restrictions: Drink plenty of fluids. Take tylenol or ibuprofen for pain or fever. Take the medications as directed. Follow up with your regular doctor. GO TO THE ER FOR ANY WORSENING SYMPTOMS Clinical Impressions Clinical Impression: Acute bronchitis, Pharyngitis Instructions Patient Instructions: DI for Pharyngitis/Tonsillopharyngitis -- Adult, DI for Acute Bronchitis Discharge ED Provider: Fidel Holley [facility] General Stated complaint: chest congestion, cough Time Seen by Provider: 03/12/24 09:46 Related Data Previous Rx's Medication Instructions Recorded amoxicillin 875 mg tablet 875 mg PO Q12H #20 tabs 03/12/24 csuvdpppcbhrsrn-vbtyoeblxhzdpmz-NC 5 ml PO Q6H PRN Cough #240 mL 03/12/24 2 mg-30 mg-10 mg/5 mL oral syrup (Bromfed DM) methylprednisolone 4 mg tablets in 4 mg PO DIRECTED 6 days #21 tabs 03/12/24 a dose pack Allergies Allergy/AdvReac Type Severity Reaction Status Date / Time No Known Drug Allergies Allergy Unknown -- Verified 03/12/24 09:54 [facility] Disclaimer: The information contained in this section may have been updated after the patient was seen, as this information can be updated by other users. Medical History Chronic pelvic pain in female Endometriosis determined by laparoscopy Surgical History Hx of laparoscopy Status post laparoscopic hysterectomy total laparoscopic hysterectomy, bilateral salpingectomy 04/15/23 [place] teeth removed all teeth removed, has full set of dentures Family History Other Asthma Cancer of kidney Diabetes Family history of COPD (chronic obstructive pulmonary disease) Hyperlipidemia Hypertension Social History Smoking Status: Former smoker tobacco type: cigarettes packs per day: 1 and e- cigarettes years smoked: 2 smoking status stop date: 2019 second hand exposure: Yes alcohol intake: never substance use type: denies use current occupational status: employed Travel in the last 8 weeks: None household members: family housing: house current occupation: [employer] current occupational exposures/hazards: No caffeine: Yes do you feel safe at home: Yes victim of physical abuse: No victim of emotional abuse: No victim of sexual abuse: No would you like helpful sources: No ROS Obtained: Yes All systems reviewed & no additional complaints except as documented Constitutional Constitutional: Reports chills and Reports fever(s) Eyes Eyes: Denies eye discharge ENT Ears, Nose, Mouth, and Throat: Reports as per HPI Cardiovascular Cardiovascular: Denies chest pain Respiratory Respiratory: Denies chest congestion and Reports cough Gastrointestinal Gastrointestingal: Reports nausea; Denies abdominal pain, constipation, cramping, diarrhea or vomiting Musculoskeletal Musculoskeletal: Denies arthralgias Integumentary/Breasts Skin/Breast: Denies rash Neurologic Neurologic: Denies paresthesias Physical Exam General General appearance: alert and in no apparent distress Head Head exam: atraumatic, normocephalic and normal inspection Eye Eye exam: Present normal appearance, PERRL and EOMI ENT ENT exam: Present mucous membranes moist and normal external ear exam Expanded ENT Exam TM/Canal exam: Bilateral TM: erythema and bulging Nose exam: Absent sinus tenderness Mouth exam: Present normal external inspection; Absent drooling Teeth exam: Present normal inspection Throat exam: Present tonsillar erythema, tonsillomegaly and tonsillar exudate Neck Neck exam: Present normal inspection, full ROM and trachea midline; Absent tenderness, meningismus or lymphadenopathy Chest Chest inspection: Present normal inspection and symmetric chest wall rise; Absent tenderness Respiratory Respiratory exam: Present normal lung sounds bilaterally; Absent respiratory distress, wheezes, stridor or accessory muscle use Cardiovascular Cardiovascular exam: Present regular rate and normal rhythm; Absent systolic murmur or diastolic murmur Abdominal Exam Abdominal exam: Present soft and normal bowel sounds; Absent distention, tenderness, guarding, rebound or rigidity Extremities Exam Extremities exam: Present normal inspection and normal capillary refill; Absent calf tenderness Back Exam Back exam: Present normal inspection and full ROM; Absent tenderness, CVA tenderness (R) or CVA tenderness (L) Neurological Exam Neurological exam: Present alert, oriented X3 and CN II-XII intact Psychiatric Psychiatric exam: Present normal affect and normal mood Skin Skin exam: Present warm, dry, intact and normal color Medical Decision Making Medical Records Medical records reviewed: No I reviewed the patient's medical records. Frantz Inquiry Pt receiving controlled substance: No Lab Data Lab results reviewed: Yes I reviewed the patient's lab results. Orders (Tests/Meds): ORDERS Category Date Time Status Chest XR 2 view (NOT portable) [XR chest 2V] Stat Exams 03/12/24 09:44 Ordered
[2024-03-12 09:57] LABS: UTC Strep Screen (Rapid) Negative (Negative)
--- NOTE | 2024-03-12 10:36 | PC.NURSE ---
Sent rapid to lab via tube system
[2024-03-12 10:45] LABS: Coronavirus 19, PCR Not Detected (NotDetected); Influenza A, PCR Not Detected (NotDetected); Influenza B, PCR Not Detected (NotDetected)
[2024-03-12 10:48] VITALS: BP 129/87; PULSE 90; RESP 18; TEMP 37.3; O2SAT 100
--- NOTE | 2024-03-12 11:46 | PC.NURSE ---
Called pt with rapid results LM. Reviewed rapid results which are negative. No further action is required.
== END 2024-03-12 10:48 | disposition home or self-care (01) ==
PROVIDERS: Emergency Provider Nurse Practitioner Family; PCP Nurse Practitioner Family
DX: J20.9 Acute bronchitis, unspecified (principal); J02.9 Acute pharyngitis, unspecified; R05.9 Cough, unspecified
CPT/HCPCS: 71046; 87636; 87880; 99204; 99212; G0463

== ENCOUNTER 2024-11-04 13:35 | Outpatient (CLI) | payer BC, SELFPAY ==
--- NOTE | 2024-11-04 13:41 | XR_ITS ---
PROCEDURE INFORMATION: Exam: XR Right Foot Complete; Alignment Exam date and time: 11/04/2024 1:42 PM Age: 29 years old Clinical indication: Pain; Foot; Right; Additional info: Foot pain TECHNIQUE: Imaging protocol: Radiologic exam of the right foot. Views: 3 or more views. COMPARISON: No relevant prior studies available. FINDINGS: Bones/joints: Hallux valgus deformity of the great toe. There is no evidence of acute fracture.There is no evidence of malalignment or dislocation. Soft tissues: Normal. IMPRESSION: There is no evidence of acute fracture.There is no evidence of malalignment or dislocation.
--- NOTE | 2024-11-04 13:41 | XR_ITS ---
PROCEDURE INFORMATION: Exam: XR Left Foot Complete; Alignment Exam date and time: 11/04/2024 1:42 PM Age: 29 years old Clinical indication: Pain; Foot; Left; Additional info: Foot pain TECHNIQUE: Imaging protocol: Radiologic exam of the left foot. Views: 3 or more views. COMPARISON: No relevant prior studies available. FINDINGS: Bones/joints: Hallux valgus deformity of the great toe. There is no evidence of acute fracture.There is no evidence of malalignment or dislocation. Soft tissues: Normal. IMPRESSION: 1. Hallux valgus deformity of the great toe. 2. There is no evidence of acute fracture.There is no evidence of malalignment or dislocation.
== END 2024-11-04 23:59 | disposition home or self-care (01) ==
LOC: RAD 13:36
PROVIDERS: PCP Nurse Practitioner Family; Visit Provider Podiatrist
DX: M79.671 Pain in right foot (principal); M79.672 Pain in left foot
CPT/HCPCS: 73630

== ENCOUNTER 2024-11-09 10:44 | Outpatient (CLI) | payer BC, SELFPAY ==
--- NOTE | 2024-11-09 10:45 | US_ITS ---
FINAL REPORT CLINICAL HISTORY: cold extremities, surgical planning FINDINGS: LOWER EXTREMITY SEGMENTAL PRESSURE MEASUREMENTS FINDINGS: Pressure indices are as follows: RIGHT LOWER EXTREMITY: Thigh: 1.25 Calf: 1.24 Ankle, posterior tibial artery: 1.04 Ankle, dorsalis pedis: 1.19 Toe: 0.82 LUAN: 1.19 Comments: Normal LEFT LOWER EXTREMITY: Thigh: 1.27 Calf: 1.18 Ankle, posterior tibial artery: 1.31 Ankle, dorsalis pedis: 1.27 Toe: 1.05 LUAN: 1.31 Comments: Normal IMPRESSION: No evidence of significant peripheral vascular disease. Reviewed, Interpreted and Dictated by Moni Erickson MD Transcribed by Kay Ward Authenticated and [facility]
== END 2024-11-09 23:59 | disposition home or self-care (01) ==
LOC: RT 10:44
PROVIDERS: PCP Nurse Practitioner Family; Visit Provider Podiatrist
DX: R09.89 Other specified symptoms and signs involving the circulatory and respiratory systems (principal); R20.9 Unspecified disturbances of skin sensation
CPT/HCPCS: 93923